=== PATIENT | male | born 1980 | race African-American/Black ===

== ENCOUNTER 2017-08-28 11:10 | Emergency (ER) | payer SELFPAY ==
[~2017-08-28] VITALS: Ht 180.3 cm; Wt 90.0 kg
[2017-08-28 13:35] VITALS: BP 129/70
[2017-08-28] MEDS ORDERED: IBUPROFEN 600MG TABLET PO ONE (13:45)
[2017-08-28] MEDS ORDERED: ACETAMINOPHEN 650MG/20.3ML UDC PO ONE (13:45)
== END 2017-08-28 13:55 | disposition home or self-care (01) ==
LOC: ER 11:10
DX: R07.89 Other chest pain (principal); M79.1 Myalgia; M25.552 Pain in left hip
CPT/HCPCS: 71046; 73521; 99284